=== PATIENT | male | born 1945 | race Caucasian/White ===

== ENCOUNTER 2021-06-03 15:25 | Outpatient (CLI) | payer MEDICARE | END 2021-06-03 15:26 | disposition home or self-care (01) | LOC: CSHCT 15:25 | PROVIDERS: ATTEND Anesthesiology Pain Medicine | DX: S22.080A Wedge compression fracture of T11-T12 vertebra, initial encounter for closed fracture (principal); S22.081A Stable burst fracture of T11-T12 vertebra, initial encounter for closed fracture; S22.020D Wedge compression fracture of second thoracic vertebra, subsequent encounter for fracture with routine healing; S22.010D Wedge compression fracture of first thoracic vertebra, subsequent encounter for fracture with routine healing | CPT/HCPCS: 72128 ==